=== PATIENT | female | born 1990 | race Caucasian/White ===

== ENCOUNTER 2022-02-10 10:09 | Outpatient (CLI) | payer OTHER, SELFPAY ==
[2022-02-10 16:45] LABS: Free T4 Free Thyroxine 0.69 ng/mL (0.78-2.19); Vitamin D 25 Hydroxy 26.2 ng/mL
== END 2022-02-10 10:10 | disposition home or self-care (01) ==
LOC: ANHWCLAB 10:12
PROVIDERS: PCP Internal Medicine Endocrinology, Diabetes & Metabolism; Visit Provider Internal Medicine Endocrinology, Diabetes & Metabolism
DX: E05.90 Thyrotoxicosis, unspecified without thyrotoxic crisis or storm (principal); G47.00 Insomnia, unspecified; R79.89 Other specified abnormal findings of blood chemistry; E04.9 Nontoxic goiter, unspecified; Z51.81 Encounter for therapeutic drug level monitoring; Z79.899 Other long term (current) drug therapy
CPT/HCPCS: 36415; 82306; 84439; 84443

== ENCOUNTER 2023-10-29 15:19 | Outpatient (CLI) | payer BC, SELFPAY ==
--- NOTE | ~2023-10-29 | US_ITS ---
EXAMINATION: US thyroid DATE: 10/29/2023 15:43 INDICATION: Goiter. TECHNIQUE: Multiple ultrasound images of the thyroid were obtained. COMPARISON: Ultrasound 02/24/2019 FINDINGS: The right thyroid lobe measures 6.9 x 2.7 x 1.7 cm. The left thyroid lobe measures 7.0 x 2.6 x 2.8 c m. The thyroid demonstrates coarsened echotexture. Vascularity is increased. In the right thyroid is thmus, there is a 4 mm nodule, likely not clinically significant. IMPRESSION: 1. Heterogeneous, hypervascular thyroid, consistent with chronic lymphocytic (Yovanny) thyroiditis versus Graves disease. Reviewed, dictated and finalized at location E. [facility]RARIAN IMPRESSION: 1. Heterogeneous, hypervascular thyroid, consistent with chronic lymphocytic (H ashimoto) thyroiditis versus Graves disease.
== END 2023-10-29 15:20 ==
PROVIDERS: PCP Internal Medicine Endocrinology, Diabetes & Metabolism; Visit Provider Internal Medicine Endocrinology, Diabetes & Metabolism
DX: E04.9 Nontoxic goiter, unspecified (principal)
CPT/HCPCS: 76536

== ENCOUNTER 2024-02-22 07:22 | Outpatient (CLI) | payer BC, SELFPAY ==
--- NOTE | 2024-03-07 14:52 | WPDHOMESLEEP ---
Sleep Study - Home Unattended Date of Study: 02/22/24 Ordering Provider: Chen Jensen DO Interpreting Provider: Chen Jensen DO Home Sleep Study Type: Watch PAT Height: 1.75 m Weight: 79.379 kg Body Mass Index: 25.8 Neck Circumference (inches): 14.25 [place]: 8 Reason for Sleep Study Difficulty staying asleep Sleep History The patient is a 33-year-old female that had a sleep study ordered for evaluation of insomnia. The patient denies awakening from sleep short of breath. She denies awakening at night with heartburn, belching or cough. She rarely snores and it is never loud enough that others complain. She occasionally has trouble sleeping when she has a cold. She denies waking up gasping for air throughout the night. She rarely has breathing problems at night observed by herself or others. She frequently sweats excessively at night. She rarely has heart palpitations or irregular heartbeats during the night. She occasionally falls asleep during the day but never while driving. She denies sleep paralysis, cataplexy and hypnagogic / hypnopompic hallucinations. She rarely has trouble at school or work due to sleepiness. She denies feeling afraid of going to sleep. She denies having nightmares. She rarely remembers her dreams. She occasionally has thoughts racing through her mind. She occasionally feels sad or depressed. She rarely has anxiety. She denies having muscular tension. She denies noticing parts of her body jerk. She denies kicking during the night. She denies having crawling and aching feelings in her legs and denies having leg pain during the night. She frequently grinds her teeth during sleep but never awakens with morning jaw pain. She denies being bothered by pain during the day and denies being awakened by pain during. She denies waking up feeling stiff in the morning. She denies waking up with sore or achy muscles. She denies waking up with pain in the neck, spine and other joints. She goes to bed at 8:00 p.m. on weekdays and between 8-10 p.m. on the weekends. It takes her 30 minutes to fall asleep. She wakes up 2-3 times throughout the night for unknown reasons and it can take up to an hour to fall back asleep. She wakes up at 6:00 a.m. on weekdays and between 6-7 a.m. on the weekends. She typically gets 6-8 hours of sleep per night. She will stay in bed for 5-10 minutes after waking up in morning. She currently lives with her mother. She will consume caffeinated Pepsi within 2 hours of bedtime. She denies engaging in physical exercise before bedtime. She will watch television before falling asleep. She will take naps in afternoon or the evening but they are not refreshing. She consumes 80 oz of Pepsi daily. She currently smokes 1 pack of cigarettes per day. She denies alcohol and recreational drug use. [facility] Past Medical History Medical History Allergies Asthma Thyroid disorder Surgical History Surgical History History of oral surgery Family History Family History Grandparent Family history of thyroid disease Father Malignant neoplasm of prostate Heart problem Alcoholism Mother Lung cancer Alcoholism Hypertension Depression Anxiety Thyroid disorder Grandparent Malignant neoplasm of prostate Social History Social History Smoking status: Heavy tobacco smoker Alcohol intake: never Substance use: former Substance use type: marijuana Do You Feel Safe in your Home?: Yes Lack of Transportation: No Lack of Food: Never True Current Housing: I Have Housing Concerned About Future Housing: No Difficulty Paying Gas/Electric Bills: No Difficulty Paying for Meds: No Currently Unemployed: No Education: Trade/Vocati
[2024-03-07 15:00] VITALS: BMI 25.8
== END 2024-03-06 10:13 | disposition home or self-care (01) ==
PROVIDERS: PCP Family Medicine; Visit Provider Family Medicine
DX: G47.00 Insomnia, unspecified (principal); G47.9 Sleep disorder, unspecified; F39 Unspecified mood [affective] disorder
CPT/HCPCS: 95800